=== PATIENT | female | born 1970 | race Caucasian/White ===

== ENCOUNTER → 2018-03-15 13:55 | Outpatient (POV) | payer BC, SELFPAY | PROVIDERS: Visit Provider Nurse Practitioner Acute Care | DX: Z00.00 Encounter for general adult medical examination without abnormal findings (principal) ==

== ENCOUNTER 2024-04-14 06:14 | Day surgery (SDC) | payer BC, SELFPAY ==
[2024-04-12 10:27] VITALS: BMI 29.1
[2024-04-14 07:07] VITALS: BP 138/79; PULSE 70; RESP 18; TEMP 36.4; O2SAT 99
[2024-04-14] MEDS: LACTATED RINGERS 1000ML 1,000 ML 50 ML IV (07:07)
--- NOTE | 2024-04-14 07:22 | P.PNANES_ITS ---
[facility] Disclaimer: The information contained in this section may have been updated after the patient was seen, as this information can be updated by other users. Medical History Sleep apnea Surgical History History of surgical removal of ganglion cyst History of cholecystectomy Family History Other Cancer Social History Smoking Status: Never smoker alcohol intake: never substance use type: denies use current occupational status: employed Travel in the last 8 weeks: None caffeine: Yes Have you lived/traveled outside [place] in past 30 days?: No Contact w/someone who lives/traveled outside US past 30 days?: No Exposure to someone with infectious disease in past 14 days?: No Do you have a fever (greater than 100.4 F or 38 C)?: No Have you tested positive for COVID-19: No Exposed to someone with COVID-19 in past 14 days?: No Do you have a sore throat?: No Do you have a cough?: No Do you have any weakness?: No Do you have any diarrhea?: No Are you experiencing any unusual bleeding?: No Do you have any muscle aches/pain?: No Do you have any abdominal pain?: No Are you experiencing loss of taste or smell?: No [facility] Anesthesia Checklist Patient Identification Patient Identification: Arm Band Structural Data Admitted From: Home Planned Operative Procedure/s: EGD/Colonoscopy Consent for Planned Operative Procedure(s) Verified: Yes Verified Documents: Surgical Consent and History and Physical NPO Status Verified Time NPO: 04:00 (finished prep) Additional verifications Anesthesia Reactions: No Hx Blood Transfusions: No Blood Transfusion Reaction: No Airway Assessment Mallampati Score:: Class II C-Spine Mobility Assessed: Yes TMJ Mobility Assessed: Yes Dentition: Good Dentition Neurological Assessment Level of Consciousness: Awake, Alert and Appropriate Anesthesia Plan Anesthesia Risk discussed: Yes Anesthesia Plan: Verified ASA Class: II Anesthesia Type: MAC
--- NOTE | 2024-04-14 08:07 | P.HP_ITS ---
History of Present Illness *Admission Date: 04/14/24 *Reason for visit:: Epigastric abdominal pain/bloating/change in bowel habits, diarrhea and joy *History of present illness: Mrs. Kelsey is a 53-year-old female who is here for diagnostic EGD and colonoscopy secondary to epigastric abdominal pain, weight loss, diarrhea, urgency and change in bowel habits. She had an unremarkable CAT scan and negative PCR stool panel. The examination is deemed medically necessary for diagnostic EGD and colonoscopy. The patient has been seen, interviewed and examined prior to the procedure by both myself and the anesthesia provider. [facility] Disclaimer: The information contained in this section may have been updated after the patient was seen, as this information can be updated by other users. Medical History Sleep apnea Surgical History History of surgical removal of ganglion cyst History of cholecystectomy Family History Other Cancer Social History Smoking Status: Never smoker alcohol intake: never substance use type: denies use current occupational status: employed Travel in the last 8 weeks: None caffeine: Yes Have you lived/traveled outside [place] in past 30 days?: No Contact w/someone who lives/traveled outside [place] past 30 days?: No Exposure to someone with infectious disease in past 14 days?: No Do you have a fever (greater than 100.4 F or 38 C)?: No Have you tested positive for COVID-19: No Exposed to someone with COVID-19 in past 14 days?: No Do you have a sore throat?: No Do you have a cough?: No Do you have any weakness?: No Do you have any diarrhea?: No Are you experiencing any unusual bleeding?: No Do you have any muscle aches/pain?: No Do you have any abdominal pain?: No Are you experiencing loss of taste or smell?: No Review of Systems Review of Systems Review of systems (narrative): Negative *Cardiovascular Comments: Negative *Gastrointestinal Comments: Negative *Genitourinary Comments: Negative *Musculoskeletal Comments: Negative *Neurologic Comments: Negative Meds Home Medications and Allergies Home Medications ?Medication ?Instructions ?Recorded ?Confirmed ?Type omeprazole 20 mg capsule,delayed 20 mg PO DAILY Reflux/Acid reflux 01/20/18 04/14/24 History release ascorbic acid (vitamin C) 1,000 mg 1 g PO Q6H 04/04/24 04/14/24 History capsule cholecalciferol (vitamin D3) 25 50 mcg PO DAILY 04/04/24 04/14/24 History mcg (1,000 unit) capsule diclofenac sodium 75 mg 75 mg PO BID 04/04/24 04/14/24 History tablet,delayed release escitalopram oxalate 10 mg tablet 10 mg PO ONCE 04/04/24 04/14/24 History (Lexapro) methocarbamol 500 mg tablet 500 mg PO HS PRN Sleep 04/04/24 04/14/24 History colestipol 1 gram tablet (Colestid) 1 g PO DAILY 04/12/24 04/14/24 History New Prescriptions to Start Prescriptions: Allergies Allergy/AdvReac Type Severity Reaction Status Date / Time iodine (IODINE) Allergy Unknown Rash Verified 04/14/24 07:06 penicillin G (PENICILLIN G) Allergy Unknown Rash Verified 04/14/24 07:06 Exam Data for Last 24 hours Vital signs and Labs for Last 24 Hours: Temp Pulse Resp BP Pulse Ox O2 Del Method 97.6 F 70 18 138/79 99 Room Air 04/14/24 07:07 04/14/24 07:07 04/14/24 07:07 04/14/24 07:07 04/14/24 07:07 04/14/24 07:07 I & O for Last 24 hours: Intake & Output 04/11/24 04/12/24 04/13/24 04/14/24 23:59 23:59 23:59 23:59 Weight 175 lb *Routine HEENT Exam Head: Present normocephalic Eye: Present EOMI and PERRL ENT: Present mucous membranes moist *Routine Neck Exam Neck: Present supple *Routine Respiratory Exam Respiratory: Present CTA bilaterally *Routine Cardiovascular Exam Cardiovascular: Present RRR *Routine Abdominal Exam Abdominal: Present soft and normoactive bowel sounds; Absent tenderness *Routine Rectal Exam Rectal:: deferred *Routine Genitalia Exam Genitalia:: deferred *Routine Extremities Exam Extremities: Absent cyanosis, clubbing or edema *Routine Skin Exam Skin: Present warm; Absent rash *Routine Neurological Exam Neurological: Present alert and oriented X3 Assessment and Plan *Assessment and plan (1) Epigastric pain: Status: Acute Category: Medical Code(s): R10.13 - Epigastric pain (2) Weight loss: Status: Acute Category: Medical Code(s): R63.4 - Abnormal weight loss (3) Bloating: Status: Acute Category: Medical Code(s): R14.0 - Abdominal distension (gaseous) (4) Diarrhea: Status: Acute Category: Medical Code(s): R19.7 - Diarrhea, unspecified (5) Fecal urgency: Status: Acute Category: Medical Code(s): R15.2 - Fecal urgency (6) Change in bowel habits: Status: Acute Category: Medical Code(s): R19.4 - Change in bowel habit Plan A/P: 1. Epigastric abdominal pain with weight loss, bloating, diarrhea, change in bowel habits and fecal urgency is the preprocedural diagnosis. The patient will be anesthetized/sedated using MAC sedation. The patient has been seen and examined. Cardiac and lung assessment prior to the examination is stable. Proceed with planned EGD and colonoscopy
--- NOTE | 2024-04-14 08:11 | HMH.PROCNOTE ---
[facility] Procedure Note Date: 04/14/24 Time: 08:21 Procedure Note:: Upper Endoscopy Procedure Report: Esophagogastroduodenoscopy with cold biopsies and TTS balloon dilation Endoscopost: Jamari Gómez II, MD Referring Physician: WILL Whitley [address] [facility], [place] [address] Date of Procedure: April 14, 2024 Equipment: Olympus GIF 190 standard upper endoscope Sedation: MAC sedation Indications: Mrs. Kelsey is a 53-year-old female who is here for diagnostic EGD and colonoscopy. The patient's last colonoscopy was 2017 and was normal and she was given 10-year surveillance. Presently, she reports epigastric abdominal pain with bloating, nausea, early satiety and belching. She has a lot of gassiness. The patient reports postprandial diarrhea that occurs 30 to 40 minutes after meals. She does report some globus sensation. The patient has had moderate weight loss. She did have unremarkable CAT scan. Her PCR panel was negative. Dicyclomine has not improved her symptoms. She has had prior cholecystectomy. She does state that her pain is primarily in the right side in the mornings (right lower quadrant). Procedure: Prior to the procedure, a history and physical exam was performed, and patient's medications and allergies were reviewed. The risks, benefits and alternatives of the sedation and procedure were discussed with the patient. All questions were answered and informed consent was obtained. The patient was brought to the procedure room. Patient identification and proposed procedure were verified by the physician and the nurse. The patient was placed in a left lateral decubitus position and the scope was passed under direct vision. Throughout the procedure, the patient's blood pressure, pulse, and oxygen saturations were monitored continuously. The upper GI endoscopy was accomplished without difficulty. The patient tolerated the procedure well. Findings: The scope was passed directly into the upper esophagus and advanced to the third portion of the duodenum. The post bulbar duodenum and duodenal bulb were normal with normal mucosa and conniventes. Cold biopsies were taken from the first portion of duodenum and duodenal bulb to rule out celiac disease. The scope was withdrawn through a normal duodenal bulb and pylorus into the stomach. There was bile reflux with mild to moderate linear reactive gastropathy of the antrum and distal body of the stomach. The proximal body and fundus of the stomach were normal. Upon retroflexion there was no hiatal hernia. Biopsies were taken from the antrum. The scope was then withdrawn into the esophagus. There is no evidence of reflux esophagitis or Reeves's. There was no corrugation or furrowing. There was no inlet patch. There were tertiary contractions and evidence of moderate esophageal dysmotility. The entire esophagus was dilated to 60 Scottish/20 mm with a TTS hydrostatic balloon. There was some resistance at the cricopharyngeus. The remainder of the esophageal mucosa was normal. Impression: 1. 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 Nonerosive GERD with moderate esophageal dysmotility 3. Bile reflux with mild to moderate linear reactive gastropathy of antrum Plan: I will follow-up the biopsies. 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 We will discuss treatment options. I will proceed with colonoscopy.
[2024-04-14 08:12] VITALS: O2SAT 98
--- NOTE | 2024-04-14 08:23 | P.PCN_ITS ---
[facility] Procedure Note Date: 04/14/24 Time: 08:34 Procedure Note:: Colonoscopy Procedure Report: Colonoscopy with cold biopsies Endoscopist: Jamari Gómez II, MD Referring physician: WILL Whitley, [address] [place] [address], [place] [address] Date of Procedure: April 14, 2024 Equipment: Olympus 190 variable stiffness pediatric colonoscope Sedation: MAC sedation Indication: Mrs. Kelsey is a 53-year-old female who is here for diagnostic EGD and colonoscopy. The patient's last colonoscopy was 2017 and was normal and she was given 10-year surveillance. Presently, she reports epigastric abdominal pain with bloating, nausea, early satiety and belching. She has a lot of gassiness. The patient reports postprandial diarrhea that occurs 30 to 40 minutes after meals. She does report some globus sensation. The patient has had moderate weight loss. She did have unremarkable CAT scan. Her PCR panel was negative. Dicyclomine has not improved her symptoms. She has had prior cholecystectomy. She does state that her pain is primarily in the right side in the mornings (right lower quadrant). Procedure: Prior to the procedure, a history and physical exam was performed, and patient's medications and allergies were reviewed. The risks, benefits and alternatives of the sedation and procedure were discussed with the patient. All questions were answered and informed consent was obtained. The patient was brought to the procedure room. Patient identification and proposed procedure were verified by the physician and the nurse. The patient was placed in a left lateral decubitus position and the scope was passed under direct vision. Throughout the procedure, the patient's blood pressure, pulse, and oxygen saturations were monitored continuously. The colonoscopy was accomplished without difficulty. The patient tolerated the procedure well. Findings: On digital rectal examination there was normal rectal tone. There were no external hemorrhoids. The colonoscope was introduced through the anal canal to the rectum and advanced to the cecum. The ileocecal valve and appendiceal orifice were identified. The scope was advanced a short distance into the ileum which appeared grossly normal. The scope was then withdrawn into the colon. There were a few pseudomembranes identified in the ascending and transverse colon that were very small (5 to 7 mm) and infrequently noted. These were biopsies with random biopsies of the right colon. The the remaining cecum, ascending and transverse colon and mucosa were grossly normal with no loss of vascular pattern. There were scattered diverticuli throughout the descending and sigmoid colon (LEFT colon). The rectum itself was normal. Upon retroflexion within the rectum there were grade 1-2 internal hemorrhoids. The preparation was excellent throughout with Gustine Preparation Score of 9. The cecal time was 12 minutes. Impression: 1. A few small pseudomembranes (5 to 7 mm) and ascending/transverse colon (rule out pseudomembranous colitis) 2. Left-sided diverticulosis 3. Grade 1-2 internal hemorrhoids Plan: The patient's PCR panel was negative for C. difficile but colonoscopy shows rare small pseudomembranes. I will follow-up the biopsies. I will also place patient on Flagyl and probiotic (Florastor). We will discuss treatment options for her longstanding IBS with diarrhea (bulking psyllium fiber and colestipol). I will treat her visceral sensitivity/functional intestinal pain as well.
[2024-04-14 08:37] VITALS: BP 97/62; PULSE 83; RESP 16; TEMP 36.1; O2SAT 93
[2024-04-14 08:47] VITALS: BP 98/69; PULSE 65; RESP 16; O2SAT 94
[2024-04-14 08:57] VITALS: BP 105/69; PULSE 64; RESP 18; O2SAT 93
[2024-04-14 09:07] VITALS: BP 102/68; PULSE 63; RESP 18; O2SAT 97
== END 2024-04-14 09:30 | disposition home or self-care (01) ==
PROVIDERS: PCP Nurse Practitioner Family; Visit Provider Internal Medicine Gastroenterology
PROC: 0DJ08ZZ Inspection of Upper Intestinal Tract, Via Natural or Artificial Opening Endoscopic (ICD-10-PCS; CPT 45378; principal; 2024-04-14 07:30)
DX: K31.9 Disease of stomach and duodenum, unspecified (principal); K22.4 Dyskinesia of esophagus; K21.9 Gastro-esophageal reflux disease without esophagitis; J39.2 Other diseases of pharynx; R10.13 Epigastric pain; R63.4 Abnormal weight loss; R14.0 Abdominal distension (gaseous); R19.7 Diarrhea, unspecified; R15.2 Fecal urgency; R19.4 Change in bowel habit; R68.81 Early satiety; R14.2 Eructation; R09.A2 Foreign body sensation, throat
CPT/HCPCS: 43239; 43249; C1726; J7120

== ENCOUNTER 2024-11-14 15:50 | Outpatient (CLI) | payer BC, SELFPAY ==
[2024-11-14 16:00] LABS: Adenovirus F 40/41, stool Not Detected (NotDetected); Clostridium Difficile A/B, PCR Not Detected (NotDetected); Cyclospora Cayetanesis Not Detected (NotDetected); Plesimonas Shigalloides, PCR Not Detected (NotDetected); Salmonella, PCR Not Detected (NotDetected); Shiga-like toxin E coli Not Detected (NotDetected); Shigella Enterovasive E coli Not Detected (NotDetected); Vibrio, PCR Not Detected (NotDetected); Yersinia Entercolitica, PCR Not Detected (NotDetected)
== END 2024-11-14 23:59 | disposition home or self-care (01) ==
LOC: LAB 15:51
PROVIDERS: PCP Nurse Practitioner Family; Visit Provider Nurse Practitioner Family
DX: R19.7 Diarrhea, unspecified (principal)
CPT/HCPCS: 87506